=== PATIENT | female | born 1995 | race Native Hawaiian/Other Pacific Islander ===

== ENCOUNTER 2017-06-03 10:59 | Emergency (ER) | payer MEDICAID ==
[2017-06-03 11:22] VITALS: BP 103/65; PULSE 76; RESP 18; TEMP 98.4; O2SAT 100
[2017-06-03 11:53] LABS: HCG,QUALITATIVE URINE POSITIVE (NEGATIVE)
[2017-06-03 12:05] LABS: SQUAMOUS EPITHIAL 4 /hpf (0-5); URINE BILIRUBIN NEGATIVE (NEGATIVE); URINE BLOOD NEGATIVE (NEGATIVE); URINE CLARITY Hazy (Clear); URINE COLOR Yellow (YELLOW); URINE GLUCOSE (UA) NORMAL (Normal); URINE LEUKOCYTE ESTERASE NEG Leu/uL (Negative); URINE PROTEIN NEGATIVE (NEGATIVE); URINE UROBILINOGEN NORMAL mg/dL (0.2-1.0)
[2017-06-03 13:31] LABS: BASO % 0.6 % (0.0-2.0); EOS % 0.6 % (0.0-4.0); HEMOGLOBIN 12.4 g/dL (11.0-16.0); LYMPH # 1.6 K/uL (1.0-4.3); LYMPH % 21.6 % (20.0-40.0); MEAN CORPUSCULAR HEMOGLOBIN 27.3 pg (27.0-31.0); MEAN CORPUSCULAR HGB CONC 33.3 g/dL (33.0-37.0); MONO # 0.4 K/uL (0.0-0.8); MONO % 5.8 % (0.0-10.0); NEUT # 5.4 K/uL (1.8-7.0); NEUT % 71.4 % (50.0-75.0); RBC 4.54 Mil/uL (3.80-5.20); RED CELL DISTRIBUTION WIDTH 13.5 % (11.5-14.5); WHITE BLOOD COUNT 7.6 K/uL (4.8-10.8)
[2017-06-03 13:57] LABS: ALB/GLOB RATIO 1.2 (1.0-2.1); ALBUMIN 4.3 g/dL (3.5-5.0); ALT/SGPT 22 U/L (9-52); AST/SGOT 24 U/L (14-36); BLOOD UREA NITROGEN 6 mg/dL (7-17); CALCIUM 9.4 mg/dl (8.6-10.4); GFR AFRICAN-AMERICAN > 60; GFR NON-AFRICAN AMERICAN > 60
--- NOTE | 2017-06-03 14:58 | US ---
PROCEDURE: First trimester presenting with vomiting and abdominal pain. HISTORY: ab pain COMPARISON: None TECHNIQUE: Standard protocol for this study/examination. FINDINGS: LMP: 04/16/2017 Prior examinations from the current : None. TECHNIQUE: Real-time 2D imaging, duplex and color Doppler. FINDINGS: Cardiac activity: Present Rate: 142.5 BPM Measurements: Grant rump length: 0.46 cm Gestational age based on CRL 6 weeks 1 day Gestational age 6 weeks based on gestational sac measurement 1.64 cm Gestational age derived from LMP: 7 weeks JACQUELINE based on LMP: 01/20/2018 JACQUELINE based on biometry: 01/26/2018 Gestational concordance documented Yolk sac identified Uterus: Unremarkable. Cervix: No Cervical abnormalities: Negative examination for cervical dilatation or effacement. Closed cervix measuring 2.91 cm Subchorionic hemorrhage: None UTERUS: 5.3 x 6.3 x 7.6 cm. ADNEXA: Right: 1.8 x 3.5 x 2.8 cm. Normal Doppler arterial waveform documented. Left: 1.7 x 2.7 x 3.1 cm. Normal Doppler arterial waveform documented Fluid in the cul-de-sac: None IMPRESSION: 6 weeks 1 day live intrauterine gestation.
--- NOTE | 2017-06-03 16:42 | C.PDOC ---
Time Seen by Provider: 06/03/17 12:58 Chief Complaint (Nursing): Abdominal Pain Past Medical History Vital Signs: Last Vital Signs Temp 98.4 F 06/03/17 11:19 Pulse 76 06/03/17 11:19 Resp 18 06/03/17 11:19 BP 103/65 06/03/17 11:19 Pulse Ox 100 06/03/17 11:19 - Social History Hx Alcohol Use: No Hx Substance Use: No ED Course And Treatment - Laboratory Results Result Diagrams: 06/03/17 13:26 06/03/17 13:26 O2 Sat by Pulse Oximetry: 100 Disposition Counseled Patient/Family Regarding: Studies Performed, Diagnosis, Need For Followup - Disposition Referrals: [facility] [place] [Outside] Disposition: HOME/ ROUTINE Disposition Time: 16:36 Condition: GOOD Additional Instructions: Please take vitamins with folic acid. Please call [facility] and ask for appt with steward/stewardess banquet. Recommend that you get book called "what to expect when you're expecting. Return to ER for any worse pin, persistent vomiting, unable to keep anything down, vaginal bleeding or any other concerns. Take 2 Tylenol for pain if needed. Instructions: Threatened Miscarriage (DC) Forms: [facility] (Cape Verdean), General Discharge Instructions - Clinical Impression Clinical Impression: Threatened
--- NOTE | 2017-06-03 16:44 | C.PDOC ---
History Of Present Illness 21 y/o female presents to ED with complaints of low abdominal pain since yesterday associated with 2 episodes of vomiting today. Patient states she had a positive home test 2 weeks ago but has not had care. Patient denies fever, chills, dysuria, vaginal bleeding or any other complaints at this time. LMP 04/16/17 Time Seen by Provider: 06/03/17 12:58 Chief Complaint (Nursing): Abdominal Pain History Per: Patient History/Exam Limitations: no limitations Onset/Duration Of Symptoms: Days Current Symptoms Are (Timing): Still Present Location Of Pain/Discomfort: Suprapubic Past Medical History Reviewed: Historical Data, Nursing Documentation, Vital Signs Vital Signs: Last Vital Signs Temp 98.4 F 06/03/17 11:19 Pulse 76 06/03/17 11:19 Resp 18 06/03/17 11:19 BP 103/65 06/03/17 11:19 Pulse Ox 100 06/03/17 16:46 - Medical History PMH: No Chronic Diseases Surgical History: No Surg Hx Family History: States: No Known Family Hx - Social History Hx Alcohol Use: No Hx Substance Use: No Review Of Systems Constitutional: Negative for: Fever, Chills Gastrointestinal: Positive for: Nausea, Vomiting, Abdominal Pain. Negative for : Diarrhea Genitourinary: Negative for: Dysuria, Vaginal Bleeding Skin: Negative for: Rash Physical Exam - Physical Exam Appears: Well, Non-toxic, No Acute Distress Skin: Warm, Dry, No Rash Head: Atraumatic, Normacephalic Eye(s): bilateral: Normal Inspection Oral Mucosa: Moist Neck: Normal ROM, Supple Cardiovascular: Rhythm Regular Respiratory: Normal Breath Sounds, No Rales, No Rhonchi, No Wheezing Gastrointestinal/Abdominal: Soft, Tenderness (Suprapubic), No Guarding, No Rebound Back: No CVA Tenderness Extremity: Normal ROM, Capillary Refill (<2 seconds) Neurological/Psych: Oriented x3, Normal Speech, Normal Cognition ED Course And Treatment - Laboratory Results Result Diagrams: 06/03/17 13:26 06/03/17 13:26 O2 Sat by Pulse Oximetry: 100 (RA) Pulse Ox Interpretation: Normal Disposition - Disposition Referrals: [facility] [place] [Outside] Disposition: HOME/ ROUTINE Disposition Time: 16:36 Condition: STABLE Additional Instructions: Please take vitamins with folic acid. Please call [facility] and ask for appt with claim clerk. Recommend that you get book called "what to expect when you're expecting. Return to ER for any worse pin, persistent vomiting, unable to keep anything down, vaginal bleeding or any other concerns. Take 2 Tylenol for pain if needed. Instructions: Threatened Miscarriage (DC) Forms: General Discharge Instructions, [facility] (Frisian) - Clinical Impression Clinical Impression: Threatened - PA / RESOURCING ADVISOR / Resident Statement MD/DO has reviewed & agrees with the documentation as recorded. - Scribe Statement The provider has reviewed the documentation as recorded by the Raginiibsadia Clayton All medical record entries made by the Yamilet were at my direction and personally dictated by me. I have reviewed the chart and agree that the record accurately reflects my personal performance of the history, physical exam, medical decision making, and the department course for this patient. I have also personally directed, reviewed, and agree with the discharge instructions and disposition.
== END 2017-06-03 16:53 | disposition home or self-care (01) ==
LOC: C.ER 10:59
DX: O20.0 Threatened abortion (principal); Z3A.01 Less than 8 weeks gestation of pregnancy

== ENCOUNTER 2017-06-30 23:06 | Emergency (ER) | payer MEDICAID ==
[2017-06-30 23:13] VITALS: BP 112/78; PULSE 78; RESP 18; TEMP 98.4; O2SAT 100
[2017-06-30] MEDS ORDERED: Sodium Chloride 0.9% 1,000 ML IV ONE (23:44)
[2017-07-01 00:12] LABS: SQUAMOUS EPITHIAL 13 /hpf (0-5); URINE BACTERIA FEW (<OCC); URINE BILIRUBIN NEGATIVE (NEGATIVE); URINE BLOOD NEGATIVE (NEGATIVE); URINE CLARITY Hazy (Clear); URINE GLUCOSE (UA) NORMAL (Normal); URINE LEUKOCYTE ESTERASE 2+ Leu/uL (Negative); URINE PROTEIN 1+ mg/dL (NEGATIVE)
[2017-07-01] MEDS ORDERED: Sodium Chloride 0.9% 1,000 ML ONE (00:12)
[2017-07-01 00:13] LABS: BASO % 0.4 % (0.0-2.0); EOS % 0.3 % (0.0-4.0); HEMOGLOBIN 13.5 g/dL (11.0-16.0); LYMPH # 1.7 K/uL (1.0-4.3); LYMPH % 16.7 % (20.0-40.0); MEAN CELL VOLUME 82.2 fL (81.0-99.0); MEAN CORPUSCULAR HEMOGLOBIN 28.2 pg (27.0-31.0); MEAN CORPUSCULAR HGB CONC 34.3 g/dL (33.0-37.0); MEAN PLATELET VOLUME 9.5 fL (7.2-11.7); MONO # 0.4 K/uL (0.0-0.8); MONO % 4.4 % (0.0-10.0); NEUT # 8.1 K/uL (1.8-7.0); NEUT % 78.2 % (50.0-75.0); RBC 4.79 Mil/uL (3.80-5.20); RED CELL DISTRIBUTION WIDTH 13.6 % (11.5-14.5); WHITE BLOOD COUNT 10.3 K/uL (4.8-10.8)
[2017-07-01 00:15] LABS: URINE COLOR YELLOW (YELLOW)
--- NOTE | 2017-07-01 00:37 | C.PDOC ---
History Of Present Illness 21 year old female 10 weeks presents to the ED c/o epigastric discomfort and persistent vomiting today. Patient was prescribed Zofran by Dr. Tony which she claims is not helping. Patient denies fever, chills, nausea, diarrhea, dysuria, hematuria. Time Seen by Provider: 06/30/17 23:33 Chief Complaint (Nursing): GI Problem History Per: Patient History/Exam Limitations: no limitations Onset/Duration Of Symptoms: Days Current Symptoms Are (Timing): Still Present Quality Of Discomfort: "Pain" Associated Symptoms: Vomiting Alleviating Factors: None Recent travel outside of the [place]: No Additional History Per: Patient Abnormal Vaginal Bleeding: No Past Medical History Reviewed: Historical Data, Nursing Documentation, Vital Signs Vital Signs: Last Vital Signs Temp 98.4 F 06/30/17 23:10 Pulse 78 06/30/17 23:10 Resp 18 06/30/17 23:10 BP 112/78 06/30/17 23:10 Pulse Ox 100 07/01/17 00:43 - Medical History PMH: No Chronic Diseases Surgical History: No Surg Hx Family History: States: Unknown Family Hx - Social History Hx Alcohol Use: No Hx Substance Use: No - Immunization History Hx Tetanus Toxoid Vaccination: No Hx Influenza Vaccination: No Hx Pneumococcal Vaccination: No Review Of Systems Constitutional: Negative for: Fever, Chills Cardiovascular: Negative for: Chest Pain Respiratory: Negative for: Shortness of Breath Gastrointestinal: Positive for: Abdominal Pain, Diarrhea Skin: Negative for: Rash Neurological: Negative for: Weakness, Numbness Physical Exam - Physical Exam Appears: Non-toxic, No Acute Distress Skin: Normal Color, Warm, Dry Head: Atraumatic, Normacephalic Eye(s): bilateral: Normal Inspection Nose: No Discharge Oral Mucosa: Moist Neck: Normal ROM, Supple Chest: Symmetrical Cardiovascular: Rhythm Regular, No Murmur Respiratory: Normal Breath Sounds, No Rales, No Rhonchi, No Wheezing Gastrointestinal/Abdominal: Soft, No Tenderness, No Guarding, No Rebound Extremity: Normal ROM, No Tenderness, No Swelling Neurological/Psych: Oriented x3, Normal Speech Gait: Steady ED Course And Treatment - Laboratory Results Result Diagrams: 07/01/17 00:07 07/01/17 00:07 Lab Interpretation: Abnormal (UA 81 WBC's) O2 Sat by Pulse Oximetry: 100 (ON RA) Pulse Ox Interpretation: Normal Medical Decision Making Medical Decision Making: hyperemesis gravidarum w UTI improved with ED tx IUP proven 06/03/17 c/w 6W1D no pelvic pain now so no need to repeat pelvic US emergently d/w Dr. Tony, ok to d/c for opt f/u. Disposition Doctor Will See Patient In The: Office Counseled Patient/Family Regarding: Studies Performed, Diagnosis - Disposition Referrals: Joe Tony MD [Staff Provider] - Disposition: HOME/ ROUTINE Disposition Time: 00:37 Condition: GOOD Additional Instructions: pepcid 20 mg 9AM and 9PM to lower stomach acid Zofran ODT 4 mg (for nausea/vomiting) every 8 hours as needed bland diet with small feedings through the day Urinary Tract Infection Macrobid 100 mg twice a day for 5 days. Follow-up with Dr. Tony as needed. Prescriptions: Famotidine [Pepcid] 20 mg PO Q12H #20 tab Nitrofurantoin Macrocrystals [Macrobid] 1 cap PO BID #10 cap Ondansetron ODT [Zofran ODT] 1 odt PO BID PRN #6 odt PRN Reason: Nausea/Vomiting Instructions: Urinary Tract Infections in Adults, Hyperemesis Gravidarum Forms: [facility] (French) - Clinical Impression Clinical Impression: Hyperemesis gravidarum - Scribe Statement The provider has reviewed the documentation as recorded by the Scribe Saulo Huerta All medical record entries made by the Scribe were at my direction and personally dictated by me. I have reviewed the chart and agree that the record accurately reflects my personal performance of the history, physical exam, medical decision making, and the department course for this patient. I have also personally directed, reviewed, and agree with the discharge instructions and disposition.
[2017-07-01 01:18] LABS: ALB/GLOB RATIO 1.3 (1.0-2.1); ALBUMIN 4.7 g/dL (3.5-5.0); ALT/SGPT 30 U/L (9-52); AST/SGOT 28 U/L (14-36); BLOOD UREA NITROGEN 8 mg/dL (7-17); GFR AFRICAN-AMERICAN > 60; GFR NON-AFRICAN AMERICAN > 60
== END 2017-07-01 00:57 | disposition home or self-care (01) ==
LOC: C.ER 23:06
DX: O21.0 Mild hyperemesis gravidarum (principal); Z3A.10 10 weeks gestation of pregnancy
CPT/HCPCS: 80053; 81001; 84702; 85025; 86850; 86900; 96361; 96374; 96375; 99283; C9113; J2405; J7040

== ENCOUNTER 2017-09-04 12:57 | Emergency (ER) | payer MEDICAID, OTHER ==
[2017-09-04 14:33] VITALS: BMI 25.9
--- NOTE | 2017-09-04 14:43 | OBHP ---
Datetime: 09/04/2017 13:30 IP Adm Impression: , intrauterine IP Chief Complaint Other: S/P Syncopal episode and back pain IP Admit Plan: Observation/Evaluation Admit Comment, IP Provider: 21 yo female G1 with an IUP at 18 6/7 weeks per MFM US on 09/02 and almos t 2 weeks difference with LMP as states on MFM US. + FHT's with Doppler and reassuring for GA Pt gives a Hx of ?Syncopal episode at Dr's waiting room while waiting for an appointment to f/up o n MFM US and c/o of back pain. Pt brought to ER by EMS and then sent to L_D because pt said that she was 20+ weeks . Pt states she drinks almost no water and does not eat Breakfast. This morning sha had 1/2 a glass of milk and then had one episode of emesis. FS BS in L_D was 68 Suspect Hypovolemia, hypoglycemia as part of the problem CBC, CMP drawn and sent to Lab Will discharge her to ER for further evaluation Discussed with Dr. Tony and agrees with POC. ER Dr. Grimm aware of POC and OK Pelvic Type - PN: Not Done Extremities - PN: Normal Abdomen - PN: Normal Back - PN: Abnormal Breast - PN: Normal Lungs - PN: Normal Heart - PN: Normal Thyroid - PN: Normal Neurologic - PN: Normal HEENT - PN: Normal General - PN: Normal IP Fetus A Comments: Reassuring FHT's for GA FHR - Baseline A Provider: 156 Membranes, Provider: Intact Contraction Comments Provider: None Comments, ACOG Physical Exam: Mild R CVA tenderness Gestation - Est Wks by US: 18.6 weeks EGA AdmitDate IP: 20.2 Vital Signs Provider: Reviewed; Within Normal Limits IP Chief Complaint: Maternal discomfort; Other Genitourinary Exam: Normal DTRs - PN: Normal
[2017-09-04] MEDS ORDERED: Dextrose 5%/Lactated Ringer's 1,000 ML IV SCH (14:45)
[2017-09-04 15:19] VITALS: RESP 18; O2SAT 100
[2017-09-04 15:21] LABS: BASO % 0.3 % (0.0-2.0); EOS % 0.3 % (0.0-4.0); HEMOGLOBIN 11.7 g/dL (11.0-16.0); LYMPH # 0.8 K/uL (1.0-4.3); LYMPH % 8.4 % (20.0-40.0); MEAN CELL VOLUME 83.3 fL (81.0-99.0); MEAN CORPUSCULAR HEMOGLOBIN 28.2 pg (27.0-31.0); MEAN CORPUSCULAR HGB CONC 33.9 g/dL (33.0-37.0); MONO # 0.6 K/uL (0.0-0.8); MONO % 6.2 % (0.0-10.0); NEUT # 8.4 K/uL (1.8-7.0); NEUT % 84.8 % (50.0-75.0); PLATELET COUNT 276 K/uL (130-400); RBC 4.15 Mil/uL (3.80-5.20); RED CELL DISTRIBUTION WIDTH 14.1 % (11.5-14.5); WHITE BLOOD COUNT 9.9 K/uL (4.8-10.8)
[2017-09-04 15:43] LABS: ALB/GLOB RATIO 1.3 (1.0-2.1); ALBUMIN 4.4 g/dL (3.5-5.0); ALT/SGPT 21 U/L (9-52); AST/SGOT 24 U/L (14-36); BLOOD UREA NITROGEN 4 mg/dL (7-17); GFR AFRICAN-AMERICAN > 60; GFR NON-AFRICAN AMERICAN > 60
[2017-09-04 15:50] LABS: LYMPHOCYTE 5 % (20-40); MONOCYTE 4 % (0-10); NEUTROPHIL 91 % (50-75); TOTAL CELLS COUNTED 100
[2017-09-04 15:51] LABS: PLATELET ESTIMATE NORMAL (NORMAL)
--- NOTE | 2017-09-04 16:14 | C.PDOC ---
History Of Present Illness 21yo female, , 18weeks , sent to ER for evaluation. Patient had syncopal episode earlier and was evaluated at her PMD's office, and was sent to ED OB and was cleared. Patient states she did not have breakfast this morning and has had no fluid intake today. She reports a chronic back pain, which has been present since the beginning of her . Otherwise, she denies any fever, chills, and offers no other medical complaints. Time Seen by Provider: 09/04/17 15:50 Chief Complaint (Nursing): Back Pain History Per: Patient History/Exam Limitations: no limitations Onset/Duration Of Symptoms: Hrs Previous Symptoms: Back Pain, Chronic Pain Additional History Per: Patient Past Medical History Reviewed: Historical Data, Nursing Documentation, Vital Signs Vital Signs: Last Vital Signs Temp 98.5 F 09/04/17 17:45 Pulse 67 09/04/17 17:45 Resp 18 09/04/17 17:45 BP 99/61 L 09/04/17 17:45 Pulse Ox 100 09/04/17 17:45 - Medical History PMH: No Chronic Diseases Surgical History: No Surg Hx Family History: States: Unknown Family Hx - Social History Hx Alcohol Use: No Hx Substance Use: No - Immunization History Hx Tetanus Toxoid Vaccination: No Hx Influenza Vaccination: No Hx Pneumococcal Vaccination: No Review Of Systems Except As Marked, All Systems Reviewed And Found Negative. Constitutional: Negative for: Fever, Chills Cardiovascular: Negative for: Chest Pain Respiratory: Negative for: Shortness of Breath Musculoskeletal: Positive for: Back Pain Physical Exam - Physical Exam Appears: Non-toxic, No Acute Distress Skin: Normal Color Head: Atraumatic, Normacephalic Eye(s): bilateral: Normal Inspection Neck: Normal ROM, Supple Chest: Symmetrical Cardiovascular: Rhythm Regular Respiratory: Normal Breath Sounds Gastrointestinal/Abdominal: Normal Exam, Soft, No Tenderness, Other (+ gravid uterus) Back: Normal Inspection, No CVA Tenderness, No Vertebral Tenderness, No Paraspinal Tenderness Extremity: Normal ROM Neurological/Psych: Oriented x3 ED Course And Treatment - Laboratory Results Result Diagrams: 09/04/17 15:17 09/04/17 15:17 ECG: Interpreted By Me, Viewed By Me ECG Rhythm: Sinus Rhythm ECG Interpretation: Normal Interpretation Of ECG: N ST/T changes Rate From EC O2 Sat by Pulse Oximetry: 100 (RA) Pulse Ox Interpretation: Normal Progress Note: EKG, Urinalysis ordered. Tylenol 975mg PO given. Medical Decision Making Medical Decision Making: syncope consider dehydration vasovagal anemia, related. pt already seen and cleared by obygn. upon arrival to er, pt awake alert in nad, smiling jokling with family. ivf iniated. ekg no changes. urine neg. abd soft no ttp. pt states prefers to go home instead of further obs. estrada franscisco syncope neg. no sob. no cp. no cardiopulm complaints. Disposition - Disposition Disposition: HOME/ ROUTINE Disposition Time: 16:56 Condition: STABLE Additional Instructions: please follow up with your doctor. you are declining further observation in the hospital. return to er with worsening symptoms or concerns. Instructions: Syncope (Fainting), Threatened Miscarriage, Vasovagal Response, Vasovagal Response (DC) Forms: [facility] (Citizen Of [place]) - Clinical Impression Clinical Impression: Syncope, Back pain, Threatened miscarriage - Scribe Statement The provider has reviewed the documentation as recorded by the Yamilet Arango Provider Attestation: All medical record entries made by the Yamilet were at my direction and personally dictated by me. I have reviewed the chart and agree that the record accurately reflects my personal performance of the history, physical exam, medical decision making, and the department course for this patient. I have also personally directed, reviewed, and agree with the discharge instructions and disposition.
[2017-09-04] MEDS ORDERED: Sodium Chloride 0.9% 1,000 ML IV ONE (16:18)
[2017-09-04] MEDS ORDERED: Sodium Chloride 0.9% 1,000 ML ONE (16:26)
[2017-09-04 16:33] LABS: SQUAMOUS EPITHIAL 2 /hpf (0-5); URINE BACTERIA RARE (<OCC); URINE BILIRUBIN NEGATIVE (NEGATIVE); URINE BLOOD NEGATIVE (NEGATIVE); URINE CLARITY Clear (Clear); URINE COLOR Straw (YELLOW); URINE GLUCOSE (UA) 3+ mg/dL (Normal); URINE LEUKOCYTE ESTERASE NEG Leu/uL (Negative); URINE PROTEIN NEGATIVE (NEGATIVE); URINE UROBILINOGEN NORMAL mg/dL (0.2-1.0)
[2017-09-04 17:46] VITALS: BP 99/61; PULSE 67; TEMP 98.5
== END 2017-09-04 17:47 | disposition home or self-care (01) ==
LOC: C.EROB 12:57 → C.ER 12:57
DX: O20.0 Threatened abortion (principal); Z3A.18 18 weeks gestation of pregnancy; R55 Syncope and collapse; M54.9 Dorsalgia, unspecified
CPT/HCPCS: 80053; 81001; 82948; 85025; 87070; 87430; 99284; J7030

== ENCOUNTER 2018-01-02 11:43 | Emergency (ER) | payer OTHER ==
[2018-01-02 11:43] VITALS: BMI 25.9
[2018-01-02] MEDS ORDERED: Lactated Ringer's 1,000 ML IV ONE (13:30)
--- NOTE | 2018-01-02 14:14 | OBHP ---
Datetime: 01/02/2018 13:26 IP Adm Impression: , intrauterine ; No Active Labor IP Chief Complaint Other: Generalized tiredness IP Admit Plan: Observation/Evaluation Admit Comment, IP Provider: CC: Mutiple complaints (Right leg pain and generalized body aches) Patient is a 22 year old at 36.4 weeks (LMP: 04/15/17 and JACQUELINE 01/26/18), who presents to the BED with complaints of leg discomfort and not feeling well. Patient was last seen at [facility] l ast week friday with normal results and had an ultrasound yesterday with normal results. Patient adm its to lower back pain, not feeling well. As per , patient has been mostly in bed for the past 2 days with decrease activity. On ros, patient denies chest pain, palpitations, fever, chills, nause a, vomiting, headache, blurry vision, vaginal bleeding, leakage of fluid, contraction, recent sexual activity. However, patient does admit to generalized body weakness. As per and patient, patie nt has poor water intake. care: Dr. 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 Stable, Afebrile 2. EFM and TOCO 3. bilateral venous doppler 4. SVE: FT Long posterior, not in labor 5. LR bolus for hydration 6. Further management based on results Above by Dr. Peace, PGY 2 All plans and management discussed with Dr. Cuca Winn I have personally seen and examined the patient with Dr. Peace, Agree with above mentioned docume ntation. Extremities - PN: Normal Abdomen - PN: Normal Lungs - PN: Normal Heart - PN: Normal General - PN: Normal FHR - Baseline A Provider: 150 Membranes, Provider: Intact EGA AdmitDate IP: 36.4 Vital Signs Provider: Reviewed IP Chief Complaint: Maternal discomfort; Other NICHD Variability Prov Fetus A: Moderate 6-25bpm NICHD Accel Fetus A IP Provider: [id number] FHR Category Provider Fetus A: Category I NICHD Decel Fetus A IP Provider: None Dilatation, Provider: FT Effacement, Provider: long Station, Provider: -3
--- NOTE | 2018-01-02 16:13 | OBHP ---
Datetime: 01/02/2018 13:26 Admit Comment, IP Provider: CC: Mutiple complaints (Right leg pain and generalized body aches) Patient is a 22 year old at 36.4 weeks (LMP: 04/15/17 and JACQUELINE 01/26/18), who presents to the O BED with complaints of leg discomfort and not feeling well. Patient was last seen at [facility] l ast week friday with normal results and had an ultrasound yesterday with normal results. Patient adm its to lower back pain, not feeling well. As per , patient has been mostly in bed for the past 2 days with decrease activity. On ros, patient denies chest pain, palpitations, fever, chills, nause a, vomiting, headache, blurry vision, vaginal bleeding, leakage of fluid, contraction, recent sexual activity. However, patient does admit to generalized body weakness. As per and patient, april nt has poor water intake. care: Dr. 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 Stable, Afebrile 2. EFM and TOCO 3. bilateral venous doppler 4. SVE: FT Long posterior, not in labor 5. LR bolus for hydration 6. Further management based on results Above by Dr. Peace, PGY 2 All plans and management discussed with Dr. Cuca Winn I have personally seen and examined the patient with Dr. Peace, Agree with above mentioned docume ntation. Addendum: prelim bilateral lower extemity doppler negative. patient reassured and all questions an swered. plan to DC home and follow up as outpatient. labor precuations provided. EGA AdmitDate IP: 36.4
[2018-01-02 20:52] VITALS: BP 115/54; PULSE 93; RESP 20; TEMP 97.6
--- NOTE | 2018-01-05 13:24 | VASCLAB ---
Date of service: 01/02/2018 PROCEDURE: Lower Extremity Venous Duplex Exam. HISTORY: bilateral leg pain. r/o DVT PRIORS: None. TECHNIQUE: Bilateral common femoral, femoral, popliteal and posterior tibial, peroneal and great saphenous veins were evaluated. Flow was assessed with color Doppler, compressibility, assessment of phasic flow and augmentation response. Report prepared by Lester Perez, QUITA, RVT FINDINGS: RIGHT: 1. Common Femoral Vein: 1.1. Compressibility - Fully compressible: Thrombus - None : Flow - Phasic: Augmentation -Normal: Reflux - None. 2. Femoral Vein: 2.1. Compressibility - Fully compressible: Thrombus - None : Flow - Phasic: Augmentation -Normal: Reflux - None. 3. Popliteal Vein: 3.1. Compressibility - Fully compressible: Thrombus - None : Flow - Phasic: Augmentation -Normal: Reflux - None. 4. Posterior Tibial Vein: 4.1. Compressibility - Fully compressible: Thrombus - None: Flow - Phasic: Augmentation -Normal: Reflux - None. 5. Peroneal Vein: 5.1. Compressibility - Fully compressible: Thrombus - None: Flow - Phasic: Augmentation -Normal: Reflux - None. 6. Great Saphenous Vein: 6.1. Compressibility - Fully compressible: Thrombus - None: Flow - Phasic: Augmentation - Normal: Reflux - None. LEFT: 1. Common Femoral Vein: 1.1. Compressibility - Fully compressible: Thrombus - None: Flow - Phasic: Augmentation -Normal: Reflux - None. 2. Femoral Vein: 2.1. Compressibility - Fully compressible: Thrombus - None: Flow - Phasic: Augmentation -Normal: Reflux - None. 3. Popliteal Vein: 3.1. Compressibility - Fully compressible: Thrombus - None : Flow - Phasic: Augmentation -Normal: Reflux - None. 4. Posterior Tibial Vein: 4.1. Compressibility - Fully compressible: Thrombus - None: Flow - Phasic: Augmentation -Normal: Reflux - None. 5. Peroneal Vein: 5.1. Compressibility - Fully compressible: Thrombus - None: Flow - Phasic: Augmentation -Normal: Reflux - None. 6. Great Saphenous Vein: 6.1. Compressibility - Fully compressible: Thrombus - None: Flow - Phasic: Augmentation - Normal: Reflux - None. OTHER FINDINGS: Right: None significant. Left: None significant. IMPRESSION: Right: No evidence of deep or superficial vein thrombosis of the right lower extremity. Normal valve function noted of the right side. Left: No evidence of deep or superficial vein thrombosis of the left lower extremity. Normal valve function noted of the left side.
== END 2018-01-02 16:31 | disposition home or self-care (01) ==
LOC: C.EROB 11:43
DX: O26.93 Pregnancy related conditions, unspecified, third trimester (principal); M79.604 Pain in right leg; M79.10 Myalgia, unspecified site; M54.5 Low back pain; Z3A.36 36 weeks gestation of pregnancy
CPT/HCPCS: 93970; 99283; J7120

== ENCOUNTER 2018-01-28 17:50 | Inpatient (IN) | payer OTHER ==
[2018-01-28 18:18] VITALS: BMI 29.7
[2018-01-28 18:50] LABS: SQUAMOUS EPITHIAL 8 /hpf (0-5); URINE BACTERIA RARE (<OCC); URINE BILIRUBIN NEGATIVE (NEGATIVE); URINE BLOOD NEGATIVE (NEGATIVE); URINE CLARITY Hazy (Clear); URINE COLOR Yellow (YELLOW); URINE GLUCOSE (UA) NORMAL (Normal); URINE LEUKOCYTE ESTERASE 1+ Leu/uL (Negative); URINE PROTEIN NEGATIVE (NEGATIVE); URINE UROBILINOGEN NORMAL mg/dL (0.2-1.0)
[2018-01-28] MEDS ORDERED: Lactated Ringer's 1,000 ML IV ONE (19:55)
--- NOTE | 2018-01-28 21:32 | OBADHP ---
Datetime: 01/28/2018 21:18 IP Chief Complaint Other: Tachycardia Polyhydramnios Postdates IP Adm Impression Other: Postdates for IOL Admit Comment, IP Provider: 22 year old female presents at 40.2 weeks gestation dated by a 6 we ek and 1 day US on 06/03/17 with JACQUELINE: 01/26/18. LMP: Patient unsure, believes it is 04/15/17. Patient p resents for irregular contractions described as lower abdominal pressure that worsens with movement. Patient reports adequate movement. Denies vaginal bleeding or leakage of clear fluid. She does admit to thick, white discharge for the past week. Denies dysuria and vaginal pruritis. Denies fever, chills, vomiting, chest pain. Does complain of intermittent muscle cramping. She notes that she almanza s not drink sufficient water. In chart, [facility] indicates polyhydramnios wit h ALLI of 24.3 and recommendation for delivery between 39-40 weeks. 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 Denies hx of STD, fibroids or cysts. Last coitus was one month ago. PMHx: Denies PSHx: Denies Medications: PNV Allergies: NKDA Family Hx: Mother, 42, living, hx DM; Father, 45, living, Hx CAD, [place], DM. Maternal grandmother had breast cancer Social Hx: Denies tobacco, alcohol and drugs throughout . for 1.5 years. Lives wi th and in-laws. Has not worked during . Assessment and Plan: 22 year old female presents at 40.2 weeks gestation for irregular contractions -Patient likely dehydrated - tachycardia noted -UA -LR 1L bolus - heart tones returned to normal in 150s after IV Hydration, moderate variability, no decels, category 1 -Recommed admisssion for IOL because polyhydramnios, tachycardia, and following M recommen dation to be delivered by 39-40 weeks. Patient explained reasons for recommendation and given opportu nity to ask questions and after all of her questions were answered, she declined to stay and states t hat she will prefer to discussed with her provider, who is a Electronics Commodity Manager. Will D/C home after signing the refusal of treatment form. However pt ad her [id number], present with patient changed their mind and requested to stay and follow with the previously proposed plan o f care, ie IOL Once again, the procedure, risks and possible complications were fully reviewed with pt and her si ster-in-law and they both verbalized understanding after all of thei questions were answered to their full satisfaction. Will admit and star IOL protocol. Will use Cervidil Pelvic Type - PN: Adequate Extremities - PN: Normal Abdomen - PN: Normal Back - PN: Normal Breast - PN: Not Done Lungs - PN: Normal Heart - PN: Normal Thyroid - PN: Normal Neurologic - PN: Normal HEENT - PN: Normal General - PN: Normal Presentation-Admit: Vertex FHR - Baseline A Provider: 150 Membranes, Provider: Intact Contraction Comments Provider: Irregular Gestation - Est Wks by US: 40.2 Vital Signs Provider: Reviewed; Within Normal Limits IP Chief Complaint: Maternal discomfort; Other NICHD Variability Prov Fetus A: Moderate 6-25bpm NICHD Accel Fetus A IP Provider: 10X10 NICHD Decel Fetus A IP Provider: None Dilatation, Provider: FTP Effacement, Provider: 70 Station, Provider: -3 Genitourinary Exam: Normal DTRs - PN: Normal EGA AdmitDate IP: 40.2 IP Adm Impression: No Active Labor; Intact Membranes IP Admit Plan: Admit to unit; Initiate labor induction protocol Datetime: 01/28/2018 19:19 Comments, ACOG Physical Exam: Abdomen: Gravid, non-tender, uterine fundus at 38cm ENT: lips noted to be dry and cracked. IP Hx Assessment: The History has been Reviewed and is Current FHR Category Provider Fetus A: Category II Datetime: 09/04/2017 13:30 IP Fetus A Comments: Reassuring FHT's for GA
[2018-01-28] MEDS ORDERED: Lactated Ringer's 1,000 ML IV SCH (21:45)
[2018-01-28 22:00] LABS: BASO % 0.3 % (0.0-2.0); EOS # 0.1 K/uL (0.0-0.7); EOS % 1.5 % (0.0-4.0); HEMOGLOBIN 12.2 g/dL (11.0-16.0); LYMPH # 1.8 K/uL (1.0-4.3); LYMPH % 21.5 % (20.0-40.0); MEAN CORPUSCULAR HGB CONC 32.6 g/dL (33.0-37.0); MEAN PLATELET VOLUME 9.7 fL (7.2-11.7); MONO # 0.6 K/uL (0.0-0.8); MONO % 6.8 % (0.0-10.0); NEUT # 5.8 K/uL (1.8-7.0); NEUT % 69.9 % (50.0-75.0); RBC 4.52 Mil/uL (3.80-5.20); RED CELL DISTRIBUTION WIDTH 14.5 % (11.5-14.5); WHITE BLOOD COUNT 8.3 K/uL (4.8-10.8)
[2018-01-28 22:19] LABS: ALB/GLOB RATIO 1.1 (1.0-2.1); ALBUMIN 3.8 g/dL (3.5-5.0); ALT/SGPT 22 U/L (9-52); AST/SGOT 27 U/L (14-36); BLOOD UREA NITROGEN 8 mg/dL (7-17); CALCIUM 9.5 mg/dl (8.6-10.4); GFR NON-AFRICAN AMERICAN > 60
[2018-01-28 22:49] LABS: HEPATITIS B SURFACE AG Negative (NEGATIVE)
[2018-01-29] MEDS ORDERED: Nalbuphine HCL 10 mg/ml Ampule IVP ONE (00:22)
[2018-01-29] MEDS ORDERED: DiphenhydrAMINE 50 mg/ml Inj IVP STA (00:24)
[2018-01-29] MEDS ORDERED: Nalbuphine HCL 10 mg/ml Ampule ONE (00:52)
[2018-01-29] MEDS ORDERED: DiphenhydrAMINE 50 mg/ml Inj ONE (00:53)
[2018-01-29] MEDS ORDERED: Bupivacaine HCl/FentaNYL Cit 100 ML EPI ONE ×2 (08:41→16:50)
[2018-01-29] MEDS ORDERED: Oxytocin 30 UNIT 30 UNITS/500 ML BAG IV SCH ×2 (11:30→14:52)
[2018-01-29] MEDS ORDERED: Oxytocin 30 UNIT 30 UNITS/500 ML BAG IV ONE (12:11)
--- NOTE | 2018-01-29 12:34 | OBPN ---
Datetime: 01/29/2018 10:45 IP Progress Impression: Normal progression of labor IP Procedures: Sterile Vag Exam IP Progress Plan: Continue present management; Augmentation Membranes, Provider: Intact Contraction Comments Provider: irregular FHR - Baseline A Provider: 145 Gestation - Est Wks by US: 40w 3d Presentation-Admit: Vertex IP Progress Note Comment: Patient received in LDR#3, S/P epidural - no c/o Ctx. Support persons pres ent Cervical exam: as above. Cervidil removed Assessment: 22 y.o. P0, 40w 3d IOL for polyhydramnios; S/P cervidil x 1 - good response. Category 1 tracing. D/W patient augmentation of labor. Patient expressed an understanding; no questions offere d. Patient is clinically stable. Plan: 1) Start pitocin 2) Anticipate vaginal delivery Vital Signs Provider: Reviewed; Within Normal Limits NICHD Accel Fetus A IP Provider: 15X15 FHR Category Provider Fetus A: Category I NICHD Variability Prov Fetus A: Moderate 6-25bpm Dilatation, Provider: 5 Effacement, Provider: 80 Station, Provider: -3 NICHD Decel Fetus A IP Provider: Early Datetime: 09/04/2017 13:30 IP Fetus A Comments: Reassuring FHT's for GA
--- NOTE | 2018-01-29 15:06 | OBPN ---
Datetime: 01/29/2018 14:57 IP Progress Impression: Normal progression of labor IP Procedures: Sterile Vag Exam IP Progress Plan: Continue present management; Anticipate Vaginal Delivery Membranes, Provider: Intact Contraction Comments Provider: 1-2 FHR - Baseline A Provider: 150 Gestation - Est Wks by US: 40w 3d Presentation-Admit: Vertex IP Progress Note Comment: Patient with urge to have a BM Cervical exam as above Assessment: 22 y.o. P0, 40w 3d, IOL for polyhydramnios - S/P cervidil x 1, no on pitocin; near end of Stage 1 of labor. Category 1 tracing. Plan: 1) Continue present management 2) Anticipate vaginal delivery NICHD Accel Fetus A IP Provider: 15X15 FHR Category Provider Fetus A: Category I NICHD Variability Prov Fetus A: Moderate 6-25bpm Dilatation, Provider: 9 Effacement, Provider: 100 Station, Provider: -2 NICHD Decel Fetus A IP Provider: Early
[2018-01-29] MEDS ORDERED: Lidocaine 2% MPF (5 ml) Inj ONE (21:37)
--- NOTE | 2018-01-29 23:01 | OBDS ---
DELIVERY PERSONNEL Delivery Doctor: Tanvir Talley MD Extracorporeal Technician: Marzena Rodriguez RN Anesthesiologist: Zana Vergara MD MATERNAL INFORMATION Delivery Anesthesia: Epidural Medications in Delivery: PITOCIN Estimated Blood Loss (ml): 500 Placenta Cultured: No Maternal Complications: Other Other Maternal Complications: polyhydramnious RN Comments: LIVE BABY GIRL Provider Comments: Vaginal delivery of live female , direct OA over right mediolateral episiot manish. Infant placed on mother's abdomen. Delayed cord clamping; cord then doubly clamped and cut. Spontaneous delivery of placenta - grossly intact; 3 vessel cord Uterine exploration performed - uterus cleared of blood and clots. Contracted and firm. Cervix, vaginal and perineum inspected -no extension. Repair of episiotomy as above. Patient tolerated procedure well. Bonding with infant; both in stable condition. EBL 500 mL Weight 8lb 5oz 's 9/9 LABOR SUMMARY EDC: 01/26/2018 00:00 No. Babies in Womb: 1 Attempted: No Labor Anesthesia: Epidural LABOR INFORMATION Reason for Induction: Polyhydramnios Onset of Labor: 01/29/2018 14:57 Complete Dilatation: 01/29/2018 16:53 Cervical Ripening Agents: Cervidil (Annotations: cervidil pulled by Dr Talley) Oxytocin: Augmentation Group B Beta Strep: Negative Steroids Given: None Reason Steroids Not Administered: Not Applicable MEMBRANES Membranes Rupture Method: Spontaneous Rupture of Membranes: 01/29/2018 18:20 Length of Rupture (hrs): 2.97 Amniotic Fluid Color: Light Meconium Amniotic Fluid Amount: Moderate Amniotic Fluid Odor: None STAGES OF LABOR Stage 1 hrs: 1 Stage 1 min: 56 Stage 2 hrs: 4 Stage 2 min: 25 Stage 3 hrs: 0 Stage 3 min: 7 Total Time in Labor hrs: 6 Total Time in Labor min: 28 VAGINAL DELIVERY Episiotomy: Right Mediolateral Laceration Extension: N/A Laceration Type: None Other Laceration: 2.0 _ 3.0 CHROMIC Laceration Repair: Not Applicable Laceration Repair Note: 2-0 and 3-0 chromic in routine fashion. Hemostasis assured Patient tolerated procedure well Initial Vag Sponge Count: 10 Final Vag Sponge Count: 20 Initial Vag Sharps Count: 0 Final Vag Sharps Count: 2 Sponge Count Correct: Yes; Vaginal Sweep Performed Sharps Count Correct: Yes Count Comment: Correct BABY A INFORMATION Infant Delivery Date/Time: 01/29/2018 21:18 Method of Delivery: Vaginal Born in Route : No : N/A Forceps: N/A Vacuum Extraction: N/A Shoulder Dystocia : No SHOULDER DYSTOCIA BABY A Delivery Date/Time: 01/29/2018 21:18 PRESENTATION/POSITION BABY A Presentation: Cephalic Cephalic Presentation: Vertex Vertex Position: Direct Occipital Anterior Breech Presentation: N/A PLACENTA INFORMATION BABY A Placenta Delivery Time : 01/29/2018 21:25 Placenta Method of Delivery: Spontaneous Placenta Status: Delivered SCORES BABY A Heart Rate 1 min: >100 bpm Resp Effort 1 min: Good Cry Reflex Irritability 1 min: Cough or Sneeze or Pulls Away Muscle Tone 1 min: Active Motion Color 1 min: Body [place], Extremities Blue Resuscitation Effort 1 min: Tactile Stimulation SCORE 1 MIN: 9 Heart Rate 5 min: >100 bpm Resp Effort 5 min: Good Cry Reflex Irritability 5 min: Cough or Sneeze or Pulls Away Muscle Tone 5 min: Active Motion Color 5 min: Body [place], Extremities Blue Resuscitation Effort 5 min: Tactile Stimulation SCORE 5 MIN: 9 INFORMATION BABY A Gestational Age at Delivery: 40.3 Gestational Status: Term Infant Outcome : Liveborn Infant Condition : Stable Sex: Female IDENTIFICATION/MEDS BABY A ID Band Number: [id number] ID Band Location: Left Leg; Left Arm Sensor Applied: Yes Sensor Number: [id number] Sensor Location : Cord Clamp WEIGHT/LENGTH BABY A Birthweight (gms): 3775 Infant Weight (lb): 8 Infant Weight (oz): 5 Length Inches: 19.75 Infant Length cms: 50.2 CORD INFORMATION BABY A No. Cord Vessels: 3 Nuchal Cord : N/A Cord Blood Taken: Yes Infant Suction: Mouth; Nose ASSESSMENT BABY A Complications: None Physical Findings at Delivery: Within Normal Limits Respirations: Appears Normal Auto Air Conditioning Installer/ALS Called : No Infant Care By: HÉCTOR / Transferred To: Remains with Mother
[2018-01-30] MEDS: Oxycodone/Acetaminophen 5/325 mg Tab PO PRN ×2 (01:27→08:07)
[2018-01-30] MEDS: Benzocaine/Menthol 20%-0.5% Topical Spray (60 ml) TOP PRN (04:06)
[2018-01-30 08:49] LABS: BASO # 0.1 K/uL (0.0-0.2); BASO % 0.8 % (0.0-2.0); EOS # 0.1 K/uL (0.0-0.7); EOS % 0.4 % (0.0-4.0); LYMPH # 2.4 K/uL (1.0-4.3); LYMPH % 14.2 % (20.0-40.0); MEAN CELL VOLUME 84.5 fL (81.0-99.0); MEAN CORPUSCULAR HEMOGLOBIN 27.6 pg (27.0-31.0); MEAN CORPUSCULAR HGB CONC 32.7 g/dL (33.0-37.0); MEAN PLATELET VOLUME 9.9 fL (7.2-11.7); MONO # 0.8 K/uL (0.0-0.8); MONO % 4.5 % (0.0-10.0); NEUT # 13.6 K/uL (1.8-7.0); NEUT % 80.1 % (50.0-75.0); RBC 3.69 Mil/uL (3.80-5.20); RED CELL DISTRIBUTION WIDTH 14.7 % (11.5-14.5)
[2018-01-30 08:53] LABS: HEMOGLOBIN 10.2 g/dL (11.0-16.0)
[2018-01-30] MEDS: Multiple Vitamins Tab PO SCH (10:12)
[2018-01-30] MEDS: Oxycodone/Acetaminophen 5/325 mg Tab PO SCH ×2 (13:45→20:15)
--- NOTE | 2018-01-30 16:48 | OBPPN ---
Datetime: 01/30/2018 07:36 PP Pain Prov: Within normal limits PP Nausea Prov: Denies PP Flatus Prov: Yes PP BM Prov: No PP Breasts Prov: Not Done PP Heart Prov: Normal PP Lungs Prov: Normal PP Abdomen/Uterus Prov: Normal PP Lochia Prov: Normal PP Vulva/Perineum Prov: Not Done PP CVA Tenderness Prov: Not Done PP Extremities Prov: Normal PP C/S Incision Prov: Not Applicable PP Progress Prov: Abnormal PP Comments Phys Exam Prov: Abdomen: diffuse tenderness, soft, non-distended, uterine fundus 1 finge r breadth below umbilicus PP Impression Prov: Normal progression PP Plan Prov: Continue present management; consult PP Progress Note Prov: PPD#1 s/p NVD. Patient seen and examined at bedside. Reports 8/10 lower abdom inal and perineal pain, relieved with Percocet. Patient reports some vaginal bleeding. She is attempt ing to breast feed, but concerned that her breast milk is not coming down. She is bottle feeding as w ell. She was encouraged to keep placing baby on the breast every 2 hours and to hydrate well. She is voiding and reports flatus, denies bowel movement. She has been tolerating regular diet. Denies fever , chills, nausea, vomiting, chest pain, shortness of breath. Assessment and Plan: PPD#1 s/p NVD -Continue Motrin and percocet for pain management -H/H 10.2/31.1 from 12.2/37.37.5, asymptomatic -s/p R mediolateral episiotomy -Sitz bath for perineal pain, and instructions given for suture care -Continue regular diet -Encourage ambulation and hydration -Encourage breast feeding -Blood type AB+ -Advance care -Anticipate discharge home in AM Case discussed with Dr. Cleveland. Carla Rasmussen, PGY-1. IP PP Procedures: None Vital Signs Provider PP: Reviewed; Within Normal Limits
[2018-01-30] MEDS: Hydrocortisone 1% Cream (30 GM) TOP SCH (18:00)
--- NOTE | 2018-01-31 08:27 | OBDCSUM ---
Datetime: 01/31/2018 08:26 Discharged to, Provider: Home Follow up at, Provider: clinic Disch Instr Activity: Normal activity Disch Instr Diet: Regular Discharge Instructions, Provider: Routine instructions given Discharge Time: 01/31/2018 08:26 Follow up in weeks, Provider: 4-6 weeks Disch Referrals: None Contraception discussed, Prov: Yes Disch Activity Restrictions: No exercising; No lifting; No sexual activity; Nothing in vagina - Inte rcourse, tampons, douche Discharge Comment, Provider: pelvic rest, pain management, bowel regimen Contraception after Delivery: Undecided
--- NOTE | 2018-01-31 08:27 | OBPPN ---
Datetime: 01/31/2018 08:20 PP Pain Prov: Within normal limits PP Lochia Prov: Normal PP Vulva/Perineum Prov: Normal PP Impression Prov: Normal progression PP Plan Prov: Continue present management; Discharge PP Progress Note Prov: patient seen and examined bottle feeding tolerating diet able to void, no flatus or BM yet abdomen is soft, NTND, fundus below umbilicus episiotomy repair in tact, no erythema, mild swelling, appropriately tender, hemmorhoids noted counseled patient extensively on hydration, diet, stool softner, fiber supplements to facilitate b owel movement and normal healing. counseled patient to NOT strain during bowel movement. rx for 10 percocet and 1 month supply of colace give counseled patient to only use percocet for severe pain as narcotics can delay bowel function and w orsen her constipation. advisied used of NSAIDs every 4-6 hours with food and water. patient and expressed understanding. discharge today, pelvic rest 6 weeks, post visit in 4-6 weeks Vital Signs Provider PP: Reviewed; Within Normal Limits
[2018-01-31] MEDS: Multiple Vitamins Tab PO SCH (09:18)
[2018-01-31] MEDS: Benzocaine/Menthol 20%-0.5% Topical Spray (60 ml) TOP PRN (09:18)
[2018-01-31] MEDS: Hydrocortisone 1% Cream (30 GM) TOP SCH (09:24)
[2018-01-31 09:43] VITALS: BP 104/65; PULSE 87; RESP 18; TEMP 97.3; O2SAT 100
[2018-01-31] MEDS ORDERED: Influenza Vaccine 60 MCG/0.5 ML SYR (3 yr & up) IM ONE (10:00)
== END 2018-01-31 13:59 | disposition home or self-care (01) | DRG 373 ==
LOC: C.EROB 17:50 → C.4D 20:45 → C.4M 01-30 00:16
PROVIDERS: ADMIT Obstetrics & Gynecology; ATTEND Obstetrics & Gynecology
PROC: 10E0XZZ Delivery of Products of Conception, External Approach (ICD-10-PCS; principal; 2018-01-29)
PROC: 0W8NXZZ Division of Female Perineum, External Approach (ICD-10-PCS; 2018-01-29)
PROC: 3E0P7VZ Introduction of Hormone into Female Reproductive, Via Natural or Artificial Opening (ICD-10-PCS; 2018-01-29)
DX: O40.3XX0 Polyhydramnios, third trimester, not applicable or unspecified (principal); E86.0 Dehydration; O76 Abnormality in fetal heart rate and rhythm complicating labor and delivery; O77.0 Labor and delivery complicated by meconium in amniotic fluid; O75.89 Other specified complications of labor and delivery; O48.0 Post-term pregnancy; Z3A.40 40 weeks gestation of pregnancy; Z37.0 Single live birth

== ENCOUNTER 2018-02-09 02:57 | Emergency (ER) | payer OTHER ==
[2018-02-09 02:57] VITALS: BMI 29.7
[2018-02-09 03:14] VITALS: O2SAT 99
--- NOTE | 2018-02-09 04:51 | C.PDOC ---
History Of Present Illness 22 year old female who is 10 days post , normal spontaneous vaginal delivery, had some tears while giving and was sutured at that time, presents now stating that over the past 2 days she has developed severe pain to the vaginal area with some greenish discharge. Denies recent sexual intercourse, fever, or abdominal pain. Time Seen by Provider: 02/09/18 03:19 Chief Complaint (Nursing): Female Genitourinary History Per: Patient History/Exam Limitations: no limitations Onset/Duration Of Symptoms: Days (2) Current Symptoms Are (Timing): Still Present Associated Symptoms: Other (Vaginal discharge. No abdominal pain.). denies: Fever Recent travel outside of the [place]: No Abnormal Vaginal Bleeding: No Past Medical History Reviewed: Historical Data, Nursing Documentation, Vital Signs Vital Signs: Last Vital Signs Temp 98.4 F 02/09/18 03:02 Pulse 72 02/09/18 03:02 Resp 18 02/09/18 03:02 BP 114/62 02/09/18 03:02 Pulse Ox 99 02/09/18 03:02 - [facility] Procedures (01/28/18) DELIVERY OF PRODUCTS OF CONCEPTION, EXTERNAL APPROACH (01/28/18) DIVISION OF FEMALE PERINEUM, EXTERNAL APPROACH (01/28/18) Family History: States: Unknown Family Hx - Social History Hx Alcohol Use: No Hx Substance Use: No - Immunization History Hx Tetanus Toxoid Vaccination: No Hx Influenza Vaccination: No Hx Pneumococcal Vaccination: No Review Of Systems Constitutional: Negative for: Fever, Chills Cardiovascular: Negative for: Chest Pain, Palpitations Respiratory: Negative for: Cough Gastrointestinal: Negative for: Nausea, Vomiting, Abdominal Pain, Diarrhea Genitourinary: Positive for: Vaginal Discharge (Greenish). Negative for: Vaginal Bleeding Skin: Negative for: Rash Physical Exam - Physical Exam Appears: Non-toxic Skin: Normal Color, Warm, Dry, No Rash Head: Atraumatic, Normacephalic Eye(s): bilateral: Normal Inspection Oral Mucosa: Moist Neck: Normal ROM, Supple Chest: Symmetrical, No Tenderness Cardiovascular: Rhythm Regular, No Friction Rub, No Murmur Respiratory: Normal Breath Sounds, No Rales, No Rhonchi, No Wheezing Gastrointestinal/Abdominal: Soft, No Tenderness Pelvic: Normal External Exam, No Vaginal Bleeding, Vaginal Discharge (Scant greyish), Other (Radiation Monitor RN Loni) Extremity: Normal ROM, No Swelling Neurological/Psych: Oriented x3, Normal Speech Gait: Steady ED Course And Treatment O2 Sat by Pulse Oximetry: 99 (Room air) Pulse Ox Interpretation: Normal Medical Decision Making Medical Decision Making: Case discussed with Dr. Cleveland, OB electronics engineering manager, who advised to start patient on keflex and have her follow up with OB or return if symptoms worsen. Patient reports that she has an appointment in 2 days and will follow up then. Disposition - Disposition Referrals: Joe Tony MD [Staff Provider] - Disposition: HOME/ ROUTINE Disposition Time: 04:50 Condition: STABLE Additional Instructions: Follow up with the OBGYN within 2-3 days as scheduled. Return if worsened. Prescriptions: Cephalexin [Keflex] 1,000 mg PO BID #40 capsule Ibuprofen [Motrin] 600 mg PO TID #21 tab Instructions: Cellulitis (Skin Infection), Adult (DC) Forms: [employer] (Mexican) - Clinical Impression Clinical Impression: Cellulitis - PA / SEWING LINE BALER / Resident Statement MD/DO has reviewed & agrees with the documentation as recorded. - Scribe Statement The provider has reviewed the documentation as recorded by the Scribe Lester Perez All medical record entries made by the Raginiibsadia were at my direction and personally dictated by me. I have reviewed the chart and agree that the record accurately reflects my personal performance of the history, physical exam, medical decision making, and the department course for this patient. I have also personally directed, reviewed, and agree with the discharge instructions and disposition.
[2018-02-09 04:58] VITALS: BP 122/64; PULSE 77; RESP 19; TEMP 98.1
== END 2018-02-09 04:58 | disposition home or self-care (01) ==
LOC: C.ER 02:57
DX: L03.90 Cellulitis, unspecified (principal)

== ENCOUNTER 2018-05-14 02:10 | Emergency (ER) | payer SELFPAY ==
[2018-05-14 02:44] LABS: URINE BILIRUBIN NEGATIVE (NEGATIVE); URINE BLOOD NEGATIVE (NEGATIVE); URINE CLARITY Clear (Clear); URINE COLOR Yellow (YELLOW); URINE GLUCOSE (UA) NORMAL (Normal); URINE LEUKOCYTE ESTERASE NEG Leu/uL (Negative); URINE PROTEIN NEGATIVE (NEGATIVE); URINE UROBILINOGEN NORMAL mg/dL (0.2-1.0)
--- NOTE | 2018-05-14 02:47 | C.PDOC ---
History Of Present Illness 22 year old female presents to the ED c/o bilateral lower abdominal discomfort, left greater than right, for the last month. Patient states she has been having hard stools. Patient states feeling bloating, cramoy abdomen thought it was gas. Patient denies fever, chills, nausea, vomit, diarrhea, other associated symptoms. Time Seen by Provider: 05/14/18 02:21 History Per: Patient History/Exam Limitations: no limitations Onset/Duration Of Symptoms: Days Current Symptoms Are (Timing): Still Present Location Of Pain/Discomfort: RLQ, LLQ (greater) Radiation Of Pain To:: None Quality Of Discomfort: Cramping, Other (Bloating) Associated Symptoms: Constipation. denies: Nausea, Vomiting, Diarrhea, Urinary Symptoms Recent travel outside of the [place]: No Additional History Per: Patient Abnormal Vaginal Bleeding: No Past Medical History Reviewed: Historical Data, Nursing Documentation, Vital Signs Vital Signs: Last Vital Signs Temp 97.6 F 05/14/18 02:28 Pulse 88 05/14/18 02:28 Resp 18 05/14/18 02:28 BP 111/82 05/14/18 02:28 Pulse Ox 99 05/14/18 02:28 - Medical History PMH: Kidney Stones (DURING ) Denies: Depression, Diabetes, HTN Surgical History: No Surg Hx - [facility] Procedures (01/28/18) DELIVERY OF PRODUCTS OF CONCEPTION, EXTERNAL APPROACH (01/28/18) DIVISION OF FEMALE PERINEUM, EXTERNAL APPROACH (01/28/18) Family History: States: Unknown Family Hx - Social History Hx Alcohol Use: No Hx Substance Use: No - Immunization History Hx Tetanus Toxoid Vaccination: No Hx Influenza Vaccination: No Hx Pneumococcal Vaccination: No Review Of Systems Constitutional: Negative for: Fever, Chills Cardiovascular: Negative for: Chest Pain Respiratory: Negative for: Shortness of Breath Gastrointestinal: Positive for: Abdominal Pain, Constipation. Negative for: Nausea, Vomiting, Diarrhea Genitourinary: Negative for: Dysuria, Hematuria Musculoskeletal: Negative for: Back Pain Skin: Negative for: Rash Neurological: Negative for: Weakness, Numbness Physical Exam - Physical Exam Appears: Non-toxic, No Acute Distress Skin: Normal Color, Warm, Dry Head: Atraumatic, Normacephalic Eye(s): bilateral: Normal Inspection Oral Mucosa: Moist Neck: Normal ROM, Supple Chest: Symmetrical Cardiovascular: Rhythm Regular Respiratory: Normal Breath Sounds, No Rales, No Rhonchi, No Wheezing Gastrointestinal/Abdominal: Soft, Tenderness (LLQ), No Guarding, No Rebound Back: No CVA Tenderness Extremity: Normal ROM, No Tenderness, No Swelling Neurological/Psych: Oriented x3, Normal Speech, Normal Cognition Gait: Steady ED Course And Treatment - Laboratory Results Urine POC: Negative ECG Interpretation: Normal O2 Sat by Pulse Oximetry: 99 (ON RA) Pulse Ox Interpretation: Normal - Other Rad ABD X-Ray: Interpreted by Me (FOS) Progress - Data Reviewed Data Reviewed: Lab, Diagnostic imaging, Old records Medical Decision Making Medical Decision Making: Plan: * Abdominal X-Ray * UA Disposition Counseled Patient/Family Regarding: Studies Performed, Diagnosis, Need For Followup, Rx Given - Disposition Referrals: YOUR,PMD [Other] Disposition: HOME/ ROUTINE Disposition Time: 03:10 Condition: GOOD Prescriptions: Magnesium Citrate [[facility] Magnesium Citrate] 300 ml PO ONCE #1 bottle Instructions: Constipation, Adult (DC), Colic (DC) - Clinical Impression Clinical Impression: Constipation, Abdominal pain, chronic, bilateral lower quadrant - Scribe Statement The provider has reviewed the documentation as recorded by the Scribe Saulo Huerta All medical record entries made by the Scribe were at my direction and personally dictated by me. I have reviewed the chart and agree that the record accurately reflects my personal performance of the history, physical exam, medical decision making, and the department course for this patient. I have also personally directed, reviewed, and agree with the discharge instructions and disposition.
[2018-05-14 03:19] VITALS: BP 117/74; PULSE 74; RESP 16; TEMP 97.8; O2SAT 100
--- NOTE | 2018-05-14 08:45 | RAD ---
Date of service: 05/14/2018 HISTORY: abd pain ro constipation COMPARISON: None available. TECHNIQUE: 1 view obtained. FINDINGS: BOWEL: Stool retention. No obstruction. No free air. BONES: Normal. OTHER FINDINGS: None. IMPRESSION: stool retention. No bowel obstruction appreciated.
== END 2018-05-14 03:22 | disposition home or self-care (01) ==
LOC: C.ER 02:10
DX: K59.00 Constipation, unspecified (principal); R10.32 Left lower quadrant pain; R10.31 Right lower quadrant pain